=== PATIENT | female | born 1965 ===

== ENCOUNTER 2018-12-31 12:38 | Day surgery (SDC) | payer SELFPAY ==
[2018-12-31 14:02] VITALS: BMI 27.3
[2018-12-31] MEDS ORDERED: Lactated Ringer's 500 ML IV ONE (14:03)
[2018-12-31 14:19] VITALS: O2SAT 99
[2018-12-31] MEDS ORDERED: Propofol 10 mg/ml Inj (20 ML) ONE (15:50)
[2018-12-31] MEDS ORDERED: Midazolam 2 MG/2 ML VIAL ONE (15:50)
[2018-12-31 17:33] VITALS: BP 110/67; PULSE 76; RESP 18; TEMP 97.1
== END 2018-12-31 17:00 | disposition home or self-care (01) ==
LOC: H.ENDO 12:38
PROVIDERS: ATTEND Internal Medicine Gastroenterology
DX: Z12.11 Encounter for screening for malignant neoplasm of colon (principal); K21.9 Gastro-esophageal reflux disease without esophagitis; Z87.19 Personal history of other diseases of the digestive system; R10.13 Epigastric pain; E78.5 Hyperlipidemia, unspecified; F32.9 Major depressive disorder, single episode, unspecified; K64.0 First degree hemorrhoids; K31.89 Other diseases of stomach and duodenum; R14.0 Abdominal distension (gaseous)
CPT/HCPCS: 43239; 45378; 88305; J2001; J2250; J2704; J7120